=== PATIENT | female | born 1975 | race Two or more races ===

== ENCOUNTER 2018-09-06 00:31 | Inpatient (IN) | payer OTHER ==
[2018-09-06] MEDS ORDERED: Famotidine 20 MG/2 ML SDV IVPUSH ONE (00:58)
[2018-09-06] MEDS ORDERED: Ondansetron 4 MG/2 ML SDV IVPUSH ONE (00:58)
[2018-09-06] MEDS ORDERED: Sodium Chloride 0.9% 10 ML Syringe FLUSH PRN (00:58)
[2018-09-06] MEDS ORDERED: HYDROmorphone 1 MG/ML Syringe IVPUSH ONE ×2 (00:58→06:18)
[2018-09-06] MEDS ORDERED: Sodium Chloride 0.9% 1,000 ML IV SCH ×2 (01:00→08:30)
--- NOTE | 2018-09-06 01:03 | EDM.PDOC ---
ED HPI GENERAL MEDICAL PROBLEM - General Chief Complaint: Abdominal Pain Stated Complaint: GALLSTONES Time Seen by Provider: 09/06/18 00:51 Source of Information: Reports: Patient, RN Notes Reviewed - History of Present Illness INITIAL COMMENTS - FREE TEXT/NARRATIVE: 42-year-old female comes in with right upper quadrant abdominal pain. This started 2 days ago and has been very steady, very uncomfortable for at least the last 2 days. The pain does radiate to her back. She does eat she has more severe pain, more severe vomiting. She has vomited at least 3 times this past afternoon and evening. Her last food was of bowel 10 hours ago. She has not had prior gallbladder or any other abdominal surgery. She did have similar discomfort about 3 years ago. Right Upper Abdomen Pain Score (Numeric/FACES): 10 - Related Data Allergies Allergy/AdvReac Type Severity Reaction Status Date / Time bacitracin Allergy Hives Verified 09/06/18 01:23 [From Neosporin ([id number])] neomycin Allergy Hives Verified 09/06/18 01:23 [From Neosporin ([id number])] polymyxin B Allergy Hives Verified 09/06/18 01:23 [From Neosporin ([id number])] Home Meds: Home Meds . 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: - Past Surgical History Female Surgical History: Reports: Section Social & Family History - Tobacco Use Smoking Status *Q: Never Smoker - Recreational Drug Use Recreational Drug Use: No ED ROS GENERAL - Review of Systems Review Of Systems: See Below Constitutional: Denies: Fever, Chills HEENT: Denies: Throat Pain Respiratory: Denies: Shortness of Breath Cardiovascular: Denies: Chest Pain GI/Abdominal: Reports: Abdominal Pain, Nausea, Vomiting Musculoskeletal: Reports: Back Pain Skin: Reports: No Symptoms ED EXAM, GI/ABD - Physical Exam Exam: See Below General Appearance: Alert, Moderate Distress Eyes: Bilateral: Normal Appearance Throat/Mouth: Normal Inspection, Normal Oropharynx Head: Atraumatic Neck: Supple, Full Range of Motion Respiratory/Chest: No Respiratory Distress, Lungs Clear, Normal Breath Sounds Cardiovascular: Regular Rate, Rhythm GI/Abdominal Exam: Tender (Tender right upper quadrant, remainder of abdomen soft and nontender). No: Rebound Back Exam: No: CVA Tenderness (L), CVA Tenderness (R) Extremities: Normal Inspection Neurological: Alert, No Motor/Sensory Deficits Skin Exam: Warm, Dry, Normal Color Course - Vital Signs Last Recorded V/S: Last Vital Signs Temp 97.8 F 09/06/18 00:40 Pulse 70 09/06/18 00:40 Resp 20 09/06/18 00:40 BP 131/80 09/06/18 00:40 Pulse Ox 100 09/06/18 00:40 - Orders/Labs/Meds Orders: Active Orders 24 hr Category Date Time Status Peripheral IV Care [RC] . DIRECTED Care 09/06/18 00:59 Active Abdomen Ltd [US] Stat Exams 09/06/18 05:34 Taken Sodium Chloride 0.9% [Normal Saline] 1,000 ml Med 09/06/18 01:00 Active IV ONETIME Sodium Chloride 0.9% [Saline Flush] Med 09/06/18 00:58 Active 10 ml FLUSH ASDIRECTED PRN Peripheral IV Insertion Adult [OM.PC] Stat Oth 09/06/18 00:58 Ordered Medication Orders Sodium Chloride (Normal Saline) 1,000 mls @ 999 mls/hr IV ONETIME [facility] Last Admin: 09/06/18 01:12 Dose: 999 mls/hr Sodium Chloride (Saline Flush) 10 ml FLUSH ASDIRECTED PRN PRN Reason: Keep Vein Open Last Admin: 09/06/18 01:15 Dose: 10 ml Labs: Laboratory Tests 09/06/18 09/06/18 09/06/18 Range/Units 01:05 01:05 01:05 WBC 15.48 H (3.98-10.04) K/mm3 RBC 4.76 (3.98-5.22) M/mm3 Hgb 13.7 (11.2-15.7) gm/L Hct 40.5 (34.1-44.9) % MCV 85.1 (79.4-94.8) fl MCH 28.8 (25.6-32.2) pg MCHC 33.8 (32.2-35.5) g/dl RDW Std Deviation 40.0 (36.4-46.3) fL Plt Count 268 (182-369) K/mm3 MPV 9.5 (9.4-12.3) fl Neutrophils % (Manual) 83 H (40-60) % Band Neutrophils % 0 (0-10) % Lymphocytes % (Manual) 12 L (20-40) % Atypical Lymphs % 0 % Monocytes % (Manual) 5 (2-10) % Eosinophils % (Manual) 0 L (0.7-5.8) % Basophils % (Manual) 0 L (0.1-1.2) Platelet Estimate Adequate RBC Morph Comment Normal Sodium 137 (136-145) mEq/L Potassium 3.7 (3.5-5.1) mEq/L Chloride 101 (98-107) mEq/L Carbon Dioxide 25 (21-32) mEq/L Anion Gap 14.7 (5-15) BUN 11 (7-18) mg/dL Creatinine 0.8 (0.55-1.02) mg/dL Est Cr Clr Drug Dosing TNP Estimated GFR (MDRD) > 60 (>60) mL/min BUN/Creatinine Ratio 13.8 L (14-18) Glucose 113 H (74-106) mg/dL Calcium 9.7 (8.5-10.1) mg/dL Total Bilirubin 1.0 (0.2-1.0) mg/dL GGT 58 H (5-55) U/L AST 21 (15-37) U/L ALT 34 (14-59) U/L Alkaline Phosphatase 112 (46-116) U/L C-Reactive Protein 11.6 H* (<1.0) mg/dL Total Protein 8.4 H (6.4-8.2) g/dl Albumin 3.7 (3.4-5.0) g/dl Globulin 4.7 gm/dL Albumin/Globulin Ratio 0.8 L (1-2) Lipase 130 (73-393) U/L Meds: Medications Generic Name Dose Route Start Last Admin Trade Name Freq PRN Reason Stop Dose Admin Sodium Chloride 1,000 mls @ 999 mls/hr 09/06/18 01:00 09/06/18 01:12 Normal Saline IV 999 mls/hr ONETIME MARLENA Administration Sodium Chloride 10 ml 09/06/18 00:58 09/06/18 01:15 Saline Flush FLUSH 10 ml ASDIRECTED PRN Administration Keep Vein Open Discontinued Medications Generic Name Dose Route Start Last Admin Trade Name Freq PRN Reason Stop Dose Admin Famotidine 20 mg 09/06/18 00:58 09/06/18 01:13 Pepcid IVPUSH 09/06/18 00:59 20 mg ONETIME ONE Administration Hydromorphone HCl 1 mg 09/06/18 00:58 09/06/18 01:14 Dilaudid IVPUSH 09/06/18 00:59 1 mg ONETIME ONE Administration Hydromorphone HCl 1 mg 09/06/18 06:18 09/06/18 06:29 Dilaudid IVPUSH 09/06/18 06:19 1 mg ONETIME ONE Administration Piperacillin Sod/Tazobactam 100 mls @ 25 mls/hr 09/06/18 02:25 09/06/18 02:45 Sod 4.5 gm/ Sodium Chloride IV 09/06/18 06:24 25 mls/hr ONETIME ONE Administration Ondansetron HCl 4 mg 09/06/18 00:58 09/06/18 01:12 Zofran IVPUSH 09/06/18 00:59 4 mg ONETIME ONE Administration - Re-Assessments/Exams Free Text/Narrative Re-Assessment/Exam: 09/06/18 02:30. White blood count, C-reactive protein elevated GGT T very slightly elevated, other workers for gallbladder disease okay including bilirubin and alkaline phosphatase. Based on her severe pain and tenderness on presentation right upper abdomen with radiation to her back she does have gallbladder disease until proven otherwise. We will get an ultrasound at 7:30 this morning based on that determine disposition. Ordered Zosyn 4.5 g IV. Given Dilaudid Zosyn and Pepcid IV and she is sleeping, appears to be resting quite comfortably at this time. Departure - Departure Time of Disposition: 07:06 Disposition: Refer to Observation Condition: Fair Clinical Impression: Cholecystitis - Discharge Information Referrals: PCP,Not In Area [Primary Care Provider] - Forms: ED Department Discharge ED Communication - Discussed Case With (1) Discussed Case With (1): Admitting Provider (Discussed with Dr Griffin, decision to admit at about 07:00.) - My Orders Last 24 Hours: My Active Orders 09/06/18 00:58 Sodium Chloride 0.9% [Saline Flush] 10 ml FLUSH ASDIRECTED PRN Peripheral IV Insertion Adult [OM.PC] Stat 09/06/18 00:59 Peripheral IV Care [RC] . DIRECTED 09/06/18 01:00 Sodium Chloride 0.9% [Normal Saline] 1,000 ml IV ONETIME 09/06/18 05:34 Abdomen Ltd [US] Stat - Assessment/Plan Last 24 Hours: My Active Orders 09/06/18 00:58 Sodium Chloride 0.9% [Saline Flush] 10 ml FLUSH ASDIRECTED PRN Peripheral IV Insertion Adult [OM.PC] Stat 09/06/18 00:59 Peripheral IV Care [RC] . DIRECTED 09/06/18 01:00 Sodium Chloride 0.9% [Normal Saline] 1,000 ml IV ONETIME 09/06/18 05:34 Abdomen Ltd [US] Stat
[2018-09-06] MEDS: Piperacillin/Tazobactam 4.5 GM in Sodium Chloride 0.9% 100 ML IV ONE ×2 (02:45→11:00)
--- NOTE | 2018-09-06 07:22 | US ---
Limited abdominal ultrasound: Multiple real-time images of the upper right abdomen were obtained. Comparison: No prior abdominal imaging. Liver shows no discrete abnormality. Single gallstone is seen within the gallbladder measuring 1.3 cm. Small amount of sludge is also seen within the gallbladder. Common bile duct slightly dilated up to 9 mm. No discrete intraluminal abnormality is appreciated within the CBD. Right kidney shows no hydronephrosis or mass and has a length of 11.5 cm. Pancreas is incompletely seen. Visualized pancreas is within normal limits. Portal vein shows normal hepatopedal flow. Impression: 1. Single gallstone with no gallbladder wall thickening. Common bile duct mildly prominent measuring up to 9 mm. Small amount of sludge is noted within the gallbladder. 2. No additional abnormality is identified on right upper quadrant abdominal ultrasound. Diagnostic code #3
[2018-09-06] MEDS ORDERED: Ondansetron 4 MG/2 ML SDV IVPUSH PRN ×2 (08:28→13:46)
[2018-09-06] MEDS ORDERED: HYDROmorphone 1 MG/ML Syringe IVPUSH PRN ×2 (08:28→13:59)
[2018-09-06] MEDS ORDERED: Piperacillin/Tazobactam 4.5 GM in Sodium Chloride 0.9% 100 ML IV SCH ×2 (08:30→11:00)
--- NOTE | 2018-09-06 10:46 | PCM.HP ---
H&P History of Present Illness - General Date of Service: 09/06/18 Admit Problem/Dx: Admission Diagnosis/Problem Admission Diagnosis/Problem Cholecystitis Source of Information: Patient, Provider History Limitations: Reports: No Limitations - History of Present Illness Initial Comments - Free Text/Narative: 42-year-old lady presented with three-day history of right upper quadrant abdominal pain. She reports having associated chills. He denies any nausea or vomiting. She denies any fever. She had a similar episode 3 years ago. She was seen and evaluated in the emergency department. Laboratory testing revealed an elevated white blood cell count of over 15,000, she also had a right upper quadrant ultrasound that revealed gallstone and sludge without evidence of gallbladder wall thickening. The common bile duct was somewhat blunt enlarged without evidence of obstruction. She has a normal mobile total bilirubin level of 1. 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 Denies: Fever HEENT: Reports: No Symptoms Pulmonary: Reports: No Symptoms Cardiovascular: Reports: No Symptoms Gastrointestinal: Reports: Abdominal Pain Musculoskeletal: Reports: Back Pain Skin: Reports: No Symptoms Exam - Exam Exam: See Below - Vital Signs Vital Signs: Last Vital Signs Temp 36.6 C 09/06/18 08:05 Pulse 82 03/18/19 08:05 Resp 16 09/06/18 08:05 BP 113/57 L 09/06/18 08:05 Pulse Ox 100 09/06/18 08:05 Weight: 87.543 kg - Exam Quality Assessment: No: Supplemental Oxygen General: Alert, Oriented HEENT: Conjunctiva Clear, EOMI Neck: Supple Lungs: Clear to Auscultation, Normal Respiratory Effort Cardiovascular: Regular Rate, Regular Rhythm GI/Abdominal Exam: Soft, Tender (in RUQ and epigastrium) Extremities: Normal Inspection Peripheral Pulses: 2+: Dorsalis Pedis (L), Dorsalis Pedis (R) Skin: Warm, Dry, Intact Neurological: Cranial Nerves Intact Neuro Extensive - Mental Status: Alert, Normal Mood/Affect - Patient Data Lab Results Last 24 hrs: Laboratory Results - last 24 hr 09/06/18 09/06/18 09/06/18 Range/Units 01:05 01:05 01:05 WBC 15.48 H (3.98-10.04) K/mm3 RBC 4.76 (3.98-5.22) M/mm3 Hgb 13.7 (11.2-15.7) gm/L Hct 40.5 (34.1-44.9) % MCV 85.1 (79.4-94.8) fl MCH 28.8 (25.6-32.2) pg MCHC 33.8 (32.2-35.5) g/dl RDW Std Deviation 40.0 (36.4-46.3) fL Plt Count 268 (182-369) K/mm3 MPV 9.5 (9.4-12.3) fl Neutrophils % (Manual) 83 H (40-60) % Band Neutrophils % 0 (0-10) % Lymphocytes % (Manual) 12 L (20-40) % Atypical Lymphs % 0 % Monocytes % (Manual) 5 (2-10) % Eosinophils % (Manual) 0 L (0.7-5.8) % Basophils % (Manual) 0 L (0.1-1.2) Platelet Estimate Adequate RBC Morph Comment Normal Sodium 137 (136-145) mEq/L Potassium 3.7 (3.5-5.1) mEq/L Chloride 101 (98-107) mEq/L Carbon Dioxide 25 (21-32) mEq/L Anion Gap 14.7 (5-15) BUN 11 (7-18) mg/dL Creatinine 0.8 (0.55-1.02) mg/dL Est Cr Clr Drug Dosing TNP Estimated GFR (MDRD) > 60 (>60) mL/min BUN/Creatinine Ratio 13.8 L (14-18) Glucose 113 H (74-106) mg/dL Calcium 9.7 (8.5-10.1) mg/dL Total Bilirubin 1.0 (0.2-1.0) mg/dL GGT 58 H (5-55) U/L AST 21 (15-37) U/L ALT 34 (14-59) U/L Alkaline Phosphatase 112 (46-116) U/L C-Reactive Protein 11.6 H* (<1.0) mg/dL Total Protein 8.4 H (6.4-8.2) g/dl Albumin 3.7 (3.4-5.0) g/dl Globulin 4.7 gm/dL Albumin/Globulin Ratio 0.8 L (1-2) Lipase 130 (73-393) U/L Result Diagrams: 09/06/18 01:05 09/06/18 01:05 *Q Meaningful Use (ADM) - VTE Risk Assess *Q Each Risk Factor Represents 1 Point: Age 41 - 59 years, Minor Surgery Planned, Obesity ( BMI > 25 kg/m2) Total Score 1 Point Risk Factors: 3 - Problem List (1) Acute cholecystitis SNOMED Code(s): 19097558 ICD Code: K81.0 - ACUTE CHOLECYSTITIS Status: Acute Current Visit: Yes Problem List Initiated/Reviewed/Updated: Yes Orders Last 24hrs: Active Orders 24 hr Category Date Time Status Patient Status [ADT] Routine ADT 09/06/18 07:20 Active Activity as Tolerated [RC] .Routine Care 09/06/18 08:34 Active Peripheral IV Care [RC] . DIRECTED Care 09/06/18 00:59 Active Nothing per Oral Now Diet [DIET] Diet 09/06/18 Lunch Active HYDROmorphone [Dilaudid] Med 09/06/18 08:28 Active 0.5 mg IVPUSH Q2H PRN Lactated Ringers [Ringers, Lactated] 1,000 ml Med 09/06/18 09:45 Active IV ASDIRECTED Ondansetron [Zofran] Med 09/06/18 08:28 Active 4 mg IVPUSH Q8H PRN Piperacillin/Tazobactam [Piperacil-Tazobact] 4.5 gm Med 09/06/18 11:00 Active Sodium Chloride 0.9% [Normal Saline] 100 ml IV Q8H Sodium Chloride 0.9% [Saline Flush] Med 09/06/18 00:58 Active 10 ml FLUSH ASDIRECTED PRN Peripheral IV Insertion Adult [OM.PC] Stat Oth 09/06/18 00:58 Ordered Resuscitation Status Routine Resus Stat 09/06/18 08:28 Ordered Medication Orders Hydromorphone HCl (Dilaudid) 0.5 mg IVPUSH Q2H PRN PRN Reason: severe pain Last Admin: 09/06/18 09:33 Dose: 0.5 mg Piperacillin Sod/Tazobactam (Sod 4.5 gm/ Sodium Chloride) 100 mls @ 25 mls/hr IV Q8H MARLENA Lactated Ringer's (Ringers, Lactated) 1,000 mls @ 125 mls/hr IV ASDIRECTED [facility]NA Ondansetron HCl (Zofran) 4 mg IVPUSH Q8H PRN PRN Reason: Nausea/vomitting Sodium Chloride (Saline Flush) 10 ml FLUSH ASDIRECTED PRN PRN Reason: Keep Vein Open Last Admin: 09/06/18 01:15 Dose: 10 ml Assessment/Plan Comment:: 42-year-old lady with acute cholecystitis - Plan for laparoscopic cholecystectomy, possible conversion to open. Discussed risks of possible bleeding, possible bile duct injury and possible injury to surrounding bowel. We discussed that the amount of inflammation may be too great to remove the gallbladder at this time, but we will know more definitively with intraoperative findings. - NPO with IVF - continue current pain regimen - Will assess the need for further inpatient stay based on intraoperative findings Silvia Cardenas MD General surgery
[2018-09-06] MEDS ORDERED: Ondansetron 4 MG/2 ML SDV ONE ×2 (10:48→11:15)
[2018-09-06] MEDS ORDERED: fentaNYL 250 MCG/5 ML SDV ONE ×2 (10:48→11:16)
[2018-09-06] MEDS ORDERED: Lidocaine 1% PF 2 ML SDV ONE ×2 (10:48→11:16)
[2018-09-06] MEDS ORDERED: Propofol 200 MG/20 ML SDV ONE ×2 (10:48→11:16)
[2018-09-06] MEDS ORDERED: Rocuronium 50 MG/5 ML Vial ONE ×2 (10:48→11:15)
[2018-09-06] MEDS ORDERED: Midazolam 1 MG/ML 2 ML SDV ONE ×2 (10:48→11:16)
[2018-09-06] MEDS: Lactated Ringers 1,000 ML IV SCH ×2 (11:04→17:25)
[2018-09-06] MEDS ORDERED: Bupivacaine 0.5%/EPINEPHrine 1:200,000 50 ML MDV ONE (11:16)
[2018-09-06] MEDS ORDERED: Lidocaine 1% with EPINEPHrine 1:100,000 20 ML MDV ONE (11:16)
[2018-09-06] MEDS ORDERED: ceFAZolin 1 GM Vial ONE (12:01)
[2018-09-06] MEDS ORDERED: HYDROmorphone 0.5 MG/0.5 ML Syringe ONE ×2 (12:18→12:26)
[2018-09-06] MEDS ORDERED: fentaNYL 100 MCG/2 ML SDV ONE (12:50)
[2018-09-06] MEDS ORDERED: Dexamethasone 4 MG/ML 5 ML MDV ONE (12:51)
[2018-09-06] MEDS ORDERED: Neostigmine Methylsulfate 1 MG/ML 5 ML Syringe ONE (13:20)
[2018-09-06] MEDS ORDERED: Lactated Ringers 1,000 ML ONE (13:38)
[2018-09-06] MEDS ORDERED: Ketorolac 30 MG/ML SDV ONE (13:45)
[2018-09-06] MEDS ORDERED: fentaNYL 100 MCG/2 ML SDV IVPUSH PRN (13:46)
[2018-09-06] MEDS ORDERED: HYDROmorphone 0.5 MG/0.5 ML Syringe IVPUSH PRN (13:46)
--- NOTE | 2018-09-06 13:58 | PCM.OPNOTE ---
- General Post-Op/Procedure Note Date of Surgery/Procedure: 09/06/18 Operative Procedure(s): laparoscopic cholecystectomy Findings: inflamed gallbladder with hydrops and purulent fluid Pre Op Diagnosis: acute cholecystitis Post-Op Diagnosis: same Anesthesia Technique: General ET Tube Primary Surgeon: Silvia Cardenas Anesthesia Provider: Kaitlin Sandy Pathology: gallbladder Fluid Replacement, Intraop: 1,700 Output, Urine Amount: 0 EBL in mLs: 30 Complications: none apparent Condition: Good Free Text/Narrative:: purulent spillage from gallbladder
--- NOTE | 2018-09-06 14:05 | PCM.PRNOTE ---
- Free Text/Narrative Note: OPERATIVE REPORT Date of Surgery/Procedure: September 06, 2018 Operative Procedure(s): laparoscopic cholecystectomy Findings: inflamed gallbladder with hydrops and purulent fluid Pre Op Diagnosis: Acute cholecystitis Post-Op Diagnosis: Same Anesthesia Technique: General ET Tube Primary Surgeon: Silvia Cardenas MD Anesthesia Provider: Kaitlin Sandy CRNA and Aron Escobar CRNA Pathology: Gallbladder with stone(s) Fluid Replacement, Intraop: 1700cc Output, Urine Amount: 0cc EBL: 30cc Drain/Tube Comments: None Indication for the procedure: The patient is a 42-year-old lady who presented to the emergency department with 3 days of right upper quadrant pain. She was diagnosed with acute cholecystitis based on physical exam, laboratory and imaging findings. The patient was counseled for laparoscopic cholecystectomy, with possible conversion to open. After discussion of the risks of bleeding and injury to the bile duct as well as injury to bowel, the patient's consent was obtained. Description of the procedure: The patient presented to the outpatient holding area on the day of the procedure. The history and physical were verified and consent was present and on the chart. The patient was taken back to the operating room and placed in supine position on the operating table. SCD boots were placed and functional prior to the start of the procedure. Preoperative antibiotics were administered according to SCIP protocol, Ancef 2 g IV. A surgical timeout was performed. The patient then had induction of general anesthesia and was intubated without difficulty. The patient was prepped and draped in standard surgical fashion. We began by making an infraumbilical vertical incision and deepened this down through subcutaneous fat to the level of the fascia. This was grasped and incised. We bluntly entered through the peritoneum and a finger sweep was done. A stay suture of 0 Vicryl was placed in the fascia. The 12 mm balloon Christopher port was then inserted into the abdomen and the balloon inflated. Insufflation was attached and we had appropriate opening pressures. The abdomen was then insufflated to 15 mmHg. We inserted a scope into the abdomen and inspected the area where we had entered. There was no evidence of injury to surrounding structures with no evidence of bile or bleeding. A TAP block was then performed using 1% lidocaine with epinephrine mixed with 0.5% bupivicaine with epinephrine. The patient was then positioned with head up and right side up to facilitate exposure of the gallbladder. We then proceeded with placing our additional ports. A 5mm port was placed in the epigastric region. Two additional 5mm ports placed under direct visualization in the right upper quadrant. Once we had sufficiently exposed the dome of the gallbladder. The gallbladder was firm and immobile when palpated intraoperatively. A laparoscopic needle was inserted into the gallbladder and 25 mL of clear fluid was aspirated from the gallbladder. The gallbladder was grasped and retracted cephalad. We noted immediately that the duodenum had been incorporated onto the gallbladder with fibrinous adhesions. There was edema and thickening of the tissues, which made identification of the ductal structures difficult. We proceeded with our dissection to expose the cystic duct and cystic artery. The cystic duct and artery were then clipped and cut using endoscopic scissors. We then proceeded to fully dissect the gallbladder off of the cystic plate using the Bovie device. During dissection, there was spillage of clear fluid and purulent fluid from the gallbladder. The gallbladder was in place in the Endo Catch bag and withdrawn towards the umbilical port. We then inspected the area of the dissection. This was irrigated and suctioned. Ray-Maame's were placed into the abdomen to help blotted up some of this fluid, they were then pulled out. Surgicel was placed into the abdomen and held against the cystic plate to assist with hemostasis. The Bovie device was also used to cauterize bleeding points on the cystic plate. After this was completed, there was no significant bleeding and hemostasis was achieved. The Surgicel was removed. We then inspected the port sites and desufflated the abdomen. The ports were then removed. The gallbladder was withdrawn through the umbilical port site. We had to open the Endo Catch bag to grasp the gallbladder to assist with extracting it from the abdominal cavity, however, the gallbladder did not leave the Endo Catch bag. We then proceeded to close the umbilical port site using an 0 Vicryl stitch. We had good closure of the fascia. The umbilical port site was then irrigated with normal saline due to the purulent fluid of the gallbladder. The umbilical port site was then closed with yareli and covered with a dry dressing. A superficial 4-0 monocryl suture was used to approximate the skin on the additional port sites. The skin was covered with Dermabond surgical glue on these additional port sites. The patient tolerated the procedure well and was extubated without difficulty. She was transported to the PACU in stable condition. All sponge, needle counts correct. No immediate complications noted. Complications: None apparent Condition: Good Silvia Cardenas MD General Surgery
--- NOTE | 2018-09-06 14:16 | PCM.POSTAN ---
POST ANESTHESIA ASSESSMENT - MENTAL STATUS Mental Status: Somnolent - VITAL SIGNS Pulse Rate: 10 SaO2: 95 Resp Rate: 10 Blood Pressure: 104/59 Temperature: 99.4 C - RESPIRATORY Respiratory Status: Respiratory Rate WNL, Airway Patent, O2 Saturation Stable, Supplemental Oxygen - CARDIOVASCULAR CV Status: Pulse Rate WNL, Blood Pressure Stable - GASTROINTESTINAL GI Status: No Symptoms - PAIN Pain Score: 0 - POST OP HYDRATION Hydration Status: Adequate & Stable - OBSERVATIONS Free Text/Narrative:: no anesthesia complications noted
[2018-09-06] MEDS: cefOXitin 2 GM in Premix Bag 1 BAG IV SCH ×2 (16:12→20:21)
[2018-09-06] MEDS ORDERED: Ibuprofen 600 MG Tab PO PRN (20:00)
[2018-09-06] MEDS: Acetaminophen/HYDROcodone 325-5 MG Tab PO PRN (20:20)
[2018-09-07] MEDS: cefOXitin 2 GM in Premix Bag 1 BAG IV SCH ×2 (04:04→08:08)
[2018-09-07] MEDS: Acetaminophen/HYDROcodone 325-5 MG Tab PO PRN (04:05)
--- NOTE | 2018-09-07 07:33 | PCM.SURGPN ---
- General Info Date of Service: 09/07/18 POD#: 1 Functional Status: Reports: Pain Controlled, Ambulating, Urinating - Patient Data Vitals - Most Recent: Last Vital Signs Temp 37.1 C 09/07/18 04:13 Pulse 80 09/07/18 04:13 Resp 18 09/07/18 04:13 BP 111/89 09/07/18 04:13 Pulse Ox 92 L 09/07/18 04:13 Weight - Most Recent: 89.018 kg I&O - Last 24 Hours: Intake & Output 09/06/18 09/07/18 09/07/18 22:59 06:59 14:59 Intake Total 300 1900 Balance 300 1900 Med Orders - Current: Current Medications Hydrocodone Bitart/Acetaminophen ([place] 325-5 Mg) 1 - 2 tab PO Q4H PRN PRN Reason: Pain (severe 7-10) Last Admin: 09/07/18 04:05 Dose: 2 tab Hydromorphone HCl (Dilaudid) 0.5 mg IVPUSH Q3H PRN PRN Reason: Breakthrough Pain Cefoxitin Sodium 2 gm/ Premix 50 mls @ 100 mls/hr IV Q6H [facility] Stop: 09/07/18 09:29 Last Admin: 09/07/18 04:04 Dose: 100 mls/hr Ibuprofen (Motrin) 600 mg PO Q6H PRN PRN Reason: Pain (moderate 4-6) Ondansetron HCl (Zofran) 4 mg IVPUSH Q8H PRN PRN Reason: Nausea/vomitting Sodium Chloride (Saline Flush) 10 ml FLUSH ASDIRECTED PRN PRN Reason: Keep Vein Open Last Admin: 09/06/18 01:15 Dose: 10 ml Discontinued Medications Bupivacaine HCl/Epinephrine Bitart ([place] 0.5%/Epinephrine 1:200,000) Confirm Administered Dose 50 ml .ROUTE .STK-MED ONE Stop: 09/06/18 11:17 Last Admin: 09/06/18 12:08 Dose: 30 ml Cefazolin Sodium (Ancef) Confirm Administered Dose 2 gm .ROUTE .STK-MED ONE Stop: 09/06/18 12:02 Dexamethasone (Dexamethasone) Confirm Administered Dose 20 mg .ROUTE .STK-MED ONE Stop: 09/06/18 12:52 Famotidine (Pepcid) 20 mg IVPUSH ONETIME ONE Stop: 09/06/18 00:59 Last Admin: 09/06/18 01:13 Dose: 20 mg Fentanyl (Sublimaze) Confirm Administered Dose 250 mcg .ROUTE .STK-MED ONE Stop: 09/06/18 10:49 Fentanyl (Sublimaze) Confirm Administered Dose 250 mcg .ROUTE .STK-MED ONE Stop: 09/06/18 11:17 Fentanyl (Sublimaze) Confirm Administered Dose 100 mcg .ROUTE .STK-MED ONE Stop: 09/06/18 12:51 Fentanyl (Sublimaze) 50 mcg IVPUSH Q5M PRN PRN Reason: Pain Stop: 09/06/18 16:00 Glycopyrrolate () Confirm Administered Dose 1 mg .ROUTE .STK-MED ONE Stop: 09/06/18 13:21 Hydromorphone HCl (Dilaudid) 1 mg IVPUSH ONETIME ONE Stop: 09/06/18 00:59 Last Admin: 09/06/18 01:14 Dose: 1 mg Hydromorphone HCl (Dilaudid) 1 mg IVPUSH ONETIME ONE Stop: 09/06/18 06:19 Last Admin: 09/06/18 06:29 Dose: 1 mg Hydromorphone HCl (Dilaudid) 0.5 mg IVPUSH Q2H PRN PRN Reason: severe pain Last Admin: 09/06/18 09:33 Dose: 0.5 mg Hydromorphone HCl (Dilaudid) Confirm Administered Dose 0.5 mg .ROUTE .STK-MED ONE Stop: 09/06/18 12:19 Hydromorphone HCl (Dilaudid) Confirm Administered Dose 0.5 mg .ROUTE .STK-MED ONE Stop: 09/06/18 12:27 Hydromorphone HCl (Dilaudid) 0.5 mg IVPUSH Q10M PRN PRN Reason: Pain (severe 7-10) Stop: 09/06/18 16:00 Sodium Chloride (Normal Saline) 1,000 mls @ 999 mls/hr IV ONETIME [facility] Last Admin: 09/06/18 01:12 Dose: 999 mls/hr Piperacillin Sod/Tazobactam (Sod 4.5 gm/ Sodium Chloride) 100 mls @ 25 mls/hr IV ONETIME ONE Stop: 09/06/18 06:24 Last Infusion: 09/06/18 06:45 Dose: Infused Piperacillin Sod/Tazobactam (Sod 4.5 gm/ Sodium Chloride) 100 mls @ 25 mls/hr IV Q8H [facility] Last Admin: 09/06/18 11:22 Dose: Not Given Sodium Chloride (Normal Saline) 1,000 mls @ 125 mls/hr IV ASDIRECTED [facility] Piperacillin Sod/Tazobactam (Sod 4.5 gm/ Sodium Chloride) 100 mls @ 25 mls/hr IV Q8H [facility] Last Admin: 09/06/18 11:20 Dose: Not Given Lactated Ringer's (Ringers, Lactated) 1,000 mls @ 125 mls/hr IV ASDIRECTED [facility] Last Admin: 09/06/18 17:25 Dose: 125 mls/hr Lactated Ringer's (Ringers, Lactated) Confirm Administered Dose 1,000 mls @ as directed .ROUTE .STK-MED ONE Stop: 09/06/18 13:39 Cefoxitin Sodium (Mefoxin In Dextrose,Iso-Osm 2 Gm/50 Ml) Confirm Administered Dose 50 mls @ as directed .ROUTE .STK-MED ONE Stop: 09/06/18 16:06 Last Admin: 09/06/18 16:11 Dose: Not Given Cefoxitin Sodium (Mefoxin In Dextrose,Iso-Osm 2 Gm/50 Ml) Confirm Administered Dose 50 mls @ as directed .ROUTE .STK-MED ONE Stop: 09/06/18 16:09 Last Admin: 09/06/18 16:12 Dose: Not Given Ketorolac Tromethamine (Toradol) Confirm Administered Dose 30 mg .ROUTE .STK- MED ONE Stop: 09/06/18 13:46 Lidocaine HCl (Xylocaine-Mpf 1%) Confirm Administered Dose 4 ml .ROUTE .STK-MED ONE Stop: 09/06/18 10:49 Lidocaine HCl (Xylocaine-Mpf 1%) Confirm Administered Dose 4 ml .ROUTE .STK-MED ONE Stop: 09/06/18 11:17 Lidocaine/Epinephrine (Xylocaine 1% With Epinephrine 1:100,000) Confirm Administered Dose 40 ml .ROUTE .STK-MED ONE Stop: 09/06/18 11:17 Last Admin: 09/06/18 12:08 Dose: 30 ml Midazolam HCl (Versed 1 Mg/Ml) Confirm Administered Dose 2 mg .ROUTE .STK-MED ONE Stop: 09/06/18 10:49 Midazolam HCl (Versed 1 Mg/Ml) Confirm Administered Dose 2 mg .ROUTE .STK-MED ONE Stop: 09/06/18 11:17 Neostigmine Methylsulfate (Neostigmine) Confirm Administered Dose 5 mg .ROUTE .STK-MED ONE Stop: 09/06/18 13:21 Ondansetron HCl (Zofran) 4 mg IVPUSH ONETIME ONE Stop: 09/06/18 00:59 Last Admin: 09/06/18 01:12 Dose: 4 mg Ondansetron HCl (Zofran) Confirm Administered Dose 4 mg .ROUTE .STK-MED ONE Stop: 09/06/18 10:49 Ondansetron HCl (Zofran) Confirm Administered Dose 4 mg .ROUTE .STK-MED ONE Stop: 09/06/18 11:16 Ondansetron HCl (Zofran) 4 mg IVPUSH ONETIME PRN PRN Reason: Nausea/Vomiting Stop: 09/06/18 16:00 Propofol (Diprivan 20 Ml) Confirm Administered Dose 200 mg .ROUTE .STK-MED ONE Stop: 09/06/18 10:49 Propofol (Diprivan 20 Ml) Confirm Administered Dose 200 mg .ROUTE .STK-MED ONE Stop: 09/06/18 11:17 Rocuronium [place] (Zemuron) Confirm Administered Dose 50 mg .ROUTE .STK-MED ONE Stop: 09/06/18 10:49 Rocuronium [place] (Zemuron) Confirm Administered Dose 50 mg .ROUTE .STK-MED ONE Stop: 09/06/18 11:16 - Exam Wound/Incisions: Healing Well, Dressing Dry and Intact. No: Erythema General: Alert, Oriented Lungs: Normal Respiratory Effort GI/Abdominal Exam: Soft, Non-Tender, No Distention - Problem List & Annotations (1) Acute cholecystitis SNOMED Code(s): 09280443 Code(s): K81.0 - ACUTE CHOLECYSTITIS Status: Acute Current Visit: Yes - Problem List Review Problem List Initiated/Reviewed/Updated: Yes - My Orders Last 24 Hours: Active Orders 24 hr Category Date Time Status Patient Status [ADT] Routine ADT 09/07/18 07:27 Ordered Activity as Tolerated [RC] DAILY Care 09/06/18 08:34 Active Antiembolic Devices [RC] PER UNIT ROUTINE Care 09/06/18 18:43 Active Cooling Warming Measures [RC] ASDIRECTED Care 09/06/18 13:46 Active Oxygen Therapy [RC] ASDIRECTED Care 09/06/18 13:46 Active Pulse Oximetry [RC] ASDIRECTED Care 09/06/18 13:46 Active Vital Signs [RC] Q4HR Care 09/06/18 13:46 Active Regular Diet [DIET] Diet 09/06/18 Lunch Active Acetaminophen/HYDROcodone [[place] 325-5 MG] Med 09/06/18 13:59 Active 1 - 2 tab PO Q4H PRN HYDROmorphone [Dilaudid] Med 09/06/18 13:59 Active 0.5 mg IVPUSH Q3H PRN Ibuprofen [Motrin] Med 09/06/18 20:00 Active 600 mg PO Q6H PRN Ondansetron [Zofran] Med 09/06/18 08:28 Active 4 mg IVPUSH Q8H PRN cefOXitin [Mefoxin in Dextrose,Iso-Osm 2 GM/50 ML] 2 gm Med 09/06/18 15:00 Active Premix Bag 1 bag IV Q6H Schedule Procedure [COMM] Routine Oth 09/06/18 11:00 Ordered Sequential Compression Device [OM.PC] Routine Oth 09/06/18 18:42 Ordered Resuscitation Status Routine Resus Stat 09/06/18 08:28 Ordered Medication Orders Hydrocodone Bitart/Acetaminophen ([place] 325-5 Mg) 1 - 2 tab PO Q4H PRN PRN Reason: Pain (severe 7-10) Last Admin: 09/07/18 04:05 Dose: 2 tab Admin: 09/06/18 20:20 Dose: 2 tab Hydromorphone HCl (Dilaudid) 0.5 mg IVPUSH Q3H PRN PRN Reason: Breakthrough Pain Cefoxitin Sodium 2 gm/ Premix 50 mls @ 100 mls/hr IV Q6H [facility] Stop: 09/07/18 09:29 Last Admin: 09/07/18 04:04 Dose: 100 mls/hr Infusion: 09/06/18 20:51 Dose: 100 mls/hr Admin: 09/06/18 20:21 Dose: 100 mls/hr Infusion: 09/06/18 16:42 Dose: 100 mls/hr Admin: 09/06/18 16:12 Dose: 100 mls/hr Ibuprofen (Motrin) 600 mg PO Q6H PRN PRN Reason: Pain (moderate 4-6) Ondansetron HCl (Zofran) 4 mg IVPUSH Q8H PRN PRN Reason: Nausea/vomitting Sodium Chloride (Saline Flush) 10 ml FLUSH ASDIRECTED PRN PRN Reason: Keep Vein Open Last Admin: 09/06/18 01:15 Dose: 10 ml - Assessment Assessment (Free Text/Narrative):: 42 y/o lady POD1 s/p lap cholecystectomy - Plan Plan (Free Text/Narrative):: - continue regular diet - one more dose ABX for full 24hr therapy - ambulate - incentive spirometry - discharge home Silvia Cardenas MD General Surgery
--- NOTE | 2018-09-07 07:38 | PCM.DCSUM1 ---
Discharge Summary - Hospital Course Free Text/Narrative:: Pt was admitted with acute cholecystitis. She had a successful laparoscopic cholecystectomy and an uneventful postoperative course. She was discharged home on postoperative day 1. Diagnosis: Stroke: No Modified [place] Scale: No Signif.Disability Despite Sympt.Able to Carry Out Usual Act./Duties Modified [place] Scale Score: 1 - Discharge Data Discharge Date: 09/07/18 Discharge Disposition: Home, Self-Care 01 Condition: Good - Discharge Diagnosis/Problem(s) (1) Acute cholecystitis SNOMED Code(s): 18714385 ICD Code: K81.0 - ACUTE CHOLECYSTITIS Status: Acute Current Visit: Yes - Patient Summary/Data Operative Procedure(s) Performed: laparoscopic cholecystectomy - Patient Instructions Diet: Usual Diet as Tolerated Activity: Apply Ice, No Lifting Over 20 Pounds (for 2 weeks), No Strenuous Activities (for 2 weeks) Showering/Bathing: No Tub Bathing/Swimming (for 2 weeks), May Shower in 3 Days ( on Thursday09/08/18) Wound/Incision Care: Keep Operative Site/Wound Site Clean and Dry (You may remove the bandage on your abdomen on Thursday09/08/18, then leave open) Notify Provider of: Fever, Increased Pain, Swelling and Redness, Drainage, Nausea and/or Vomiting Other/Special Instructions: Do not take the Ordegan (ketorolac) and ibuprofen at the same time. - Discharge Plan *PRESCRIPTION DRUG MONITORING PROGRAM REVIEWED*: Not Applicable *COPY OF PRESCRIPTION DRUG MONITORING REPORT IN PATIENT OTILIA: Not Applicable Prescriptions/Med Rec: Acetaminophen/HYDROcodone [[place] 325-5 MG] 1 - 2 tab PO Q4H PRN 14 Days #40 tablet PRN Reason: Pain (Severe 7-10) Docusate Sodium [Colace] 100 mg PO BID 20 Days #40 cap Ibuprofen [Motrin] 600 mg PO Q6H PRN 20 Days #120 tablet PRN Reason: Pain (Moderate 4-6) Home Medications: Home Meds Acetaminophen/HYDROcodone [[place] 325-5 MG] 1 - 2 tab PO Q4H PRN 14 Days #40 tablet 09/06/18 [Rx] Docusate Sodium [Colace] 100 mg PO BID 20 Days #40 cap 09/06/18 [Rx] Ibuprofen [Motrin] 600 mg PO Q6H PRN 20 Days #120 tablet 09/06/18 [Rx] Ordegan 1 tab PO BID 09/06/18 [History] Patient Handouts: Laparoscopic Cholecystectomy Forms: ED Department Discharge Referrals: PCP,Not In Area [Primary Care Provider] - [employer] [Nurse Practitioner] - (follow up in 2 weeks) - Discharge Summary/Plan Comment DC Time >30 min.: No - Patient Data Vitals - Most Recent: Last Vital Signs Temp 37.1 C 09/07/18 04:13 Pulse 80 09/07/18 04:13 Resp 18 09/07/18 04:13 BP 111/89 09/07/18 04:13 Pulse Ox 92 L 09/07/18 04:13 Weight - Most Recent: 89.018 kg I&O - Last 24 hours: Intake & Output 09/06/18 09/07/18 09/07/18 22:59 06:59 14:59 Intake Total 300 1900 Balance 300 1900 Med Orders - Current: Current Medications Hydrocodone Bitart/Acetaminophen ([place] 325-5 Mg) 1 - 2 tab PO Q4H PRN PRN Reason: Pain (severe 7-10) Last Admin: 09/07/18 04:05 Dose: 2 tab Hydromorphone HCl (Dilaudid) 0.5 mg IVPUSH Q3H PRN PRN Reason: Breakthrough Pain Cefoxitin Sodium 2 gm/ Premix 50 mls @ 100 mls/hr IV Q6H [facility] Stop: 09/07/18 09:29 Last Admin: 09/07/18 04:04 Dose: 100 mls/hr Ibuprofen (Motrin) 600 mg PO Q6H PRN PRN Reason: Pain (moderate 4-6) Ondansetron HCl (Zofran) 4 mg IVPUSH Q8H PRN PRN Reason: Nausea/vomitting Sodium Chloride (Saline Flush) 10 ml FLUSH ASDIRECTED PRN PRN Reason: Keep Vein Open Last Admin: 09/06/18 01:15 Dose: 10 ml Discontinued Medications Bupivacaine HCl/Epinephrine Bitart ([place] 0.5%/Epinephrine 1:200,000) Confirm Administered Dose 50 ml .ROUTE .STK-MED ONE Stop: 09/06/18 11:17 Last Admin: 09/06/18 12:08 Dose: 30 ml Cefazolin Sodium (Ancef) Confirm Administered Dose 2 gm .ROUTE .STK-MED ONE Stop: 09/06/18 12:02 Dexamethasone (Dexamethasone) Confirm Administered Dose 20 mg .ROUTE .STK-MED ONE Stop: 09/06/18 12:52 Famotidine (Pepcid) 20 mg IVPUSH ONETIME ONE Stop: 09/06/18 00:59 Last Admin: 09/06/18 01:13 Dose: 20 mg Fentanyl (Sublimaze) Confirm Administered Dose 250 mcg .ROUTE .STK-MED ONE Stop: 09/06/18 10:49 Fentanyl (Sublimaze) Confirm Administered Dose 250 mcg .ROUTE .STK-MED ONE Stop: 09/06/18 11:17 Fentanyl (Sublimaze) Confirm Administered Dose 100 mcg .ROUTE .STK-MED ONE Stop: 09/06/18 12:51 Fentanyl (Sublimaze) 50 mcg IVPUSH Q5M PRN PRN Reason: Pain Stop: 09/06/18 16:00 Glycopyrrolate () Confirm Administered Dose 1 mg .ROUTE .STK-MED ONE Stop: 09/06/18 13:21 Hydromorphone HCl (Dilaudid) 1 mg IVPUSH ONETIME ONE Stop: 09/06/18 00:59 Last Admin: 09/06/18 01:14 Dose: 1 mg Hydromorphone HCl (Dilaudid) 1 mg IVPUSH ONETIME ONE Stop: 09/06/18 06:19 Last Admin: 09/06/18 06:29 Dose: 1 mg Hydromorphone HCl (Dilaudid) 0.5 mg IVPUSH Q2H PRN PRN Reason: severe pain Last Admin: 09/06/18 09:33 Dose: 0.5 mg Hydromorphone HCl (Dilaudid) Confirm Administered Dose 0.5 mg .ROUTE .STK-MED ONE Stop: 09/06/18 12:19 Hydromorphone HCl (Dilaudid) Confirm Administered Dose 0.5 mg .ROUTE .STK-MED ONE Stop: 09/06/18 12:27 Hydromorphone HCl (Dilaudid) 0.5 mg IVPUSH Q10M PRN PRN Reason: Pain (severe 7-10) Stop: 09/06/18 16:00 Sodium Chloride (Normal Saline) 1,000 mls @ 999 mls/hr IV ONETIME [facility] Last Admin: 09/06/18 01:12 Dose: 999 mls/hr Piperacillin Sod/Tazobactam (Sod 4.5 gm/ Sodium Chloride) 100 mls @ 25 mls/hr IV ONETIME ONE Stop: 09/06/18 06:24 Last Infusion: 09/06/18 06:45 Dose: Infused Piperacillin Sod/Tazobactam (Sod 4.5 gm/ Sodium Chloride) 100 mls @ 25 mls/hr IV Q8H [facility] Last Admin: 09/06/18 11:22 Dose: Not Given Sodium Chloride (Normal Saline) 1,000 mls @ 125 mls/hr IV ASDIRECTED [facility] Piperacillin Sod/Tazobactam (Sod 4.5 gm/ Sodium Chloride) 100 mls @ 25 mls/hr IV Q8H [facility] Last Admin: 09/06/18 11:20 Dose: Not Given Lactated Ringer's (Ringers, Lactated) 1,000 mls @ 125 mls/hr IV ASDIRECTED [facility] Last Admin: 09/06/18 17:25 Dose: 125 mls/hr Lactated Ringer's (Ringers, Lactated) Confirm Administered Dose 1,000 mls @ as directed .ROUTE .STK-MED ONE Stop: 09/06/18 13:39 Cefoxitin Sodium (Mefoxin In Dextrose,Iso-Osm 2 Gm/50 Ml) Confirm Administered Dose 50 mls @ as directed .ROUTE .STK-MED ONE Stop: 09/06/18 16:06 Last Admin: 09/06/18 16:11 Dose: Not Given Cefoxitin Sodium (Mefoxin In Dextrose,Iso-Osm 2 Gm/50 Ml) Confirm Administered Dose 50 mls @ as directed .ROUTE .STK-MED ONE Stop: 09/06/18 16:09 Last Admin: 09/06/18 16:12 Dose: Not Given Ketorolac Tromethamine (Toradol) Confirm Administered Dose 30 mg .ROUTE .STK- MED ONE Stop: 09/06/18 13:46 Lidocaine HCl (Xylocaine-Mpf 1%) Confirm Administered Dose 4 ml .ROUTE .STK-MED ONE Stop: 09/06/18 10:49 Lidocaine HCl (Xylocaine-Mpf 1%) Confirm Administered Dose 4 ml .ROUTE .STK-MED ONE Stop: 09/06/18 11:17 Lidocaine/Epinephrine (Xylocaine 1% With Epinephrine 1:100,000) Confirm Administered Dose 40 ml .ROUTE .STK-MED ONE Stop: 09/06/18 11:17 Last Admin: 09/06/18 12:08 Dose: 30 ml Midazolam HCl (Versed 1 Mg/Ml) Confirm Administered Dose 2 mg .ROUTE .STK-MED ONE Stop: 09/06/18 10:49 Midazolam HCl (Versed 1 Mg/Ml) Confirm Administered Dose 2 mg .ROUTE .STK-MED ONE Stop: 09/06/18 11:17 Neostigmine Methylsulfate (Neostigmine) Confirm Administered Dose 5 mg .ROUTE .STK-MED ONE Stop: 09/06/18 13:21 Ondansetron HCl (Zofran) 4 mg IVPUSH ONETIME ONE Stop: 09/06/18 00:59 Last Admin: 09/06/18 01:12 Dose: 4 mg Ondansetron HCl (Zofran) Confirm Administered Dose 4 mg .ROUTE .STK-MED ONE Stop: 09/06/18 10:49 Ondansetron HCl (Zofran) Confirm Administered Dose 4 mg .ROUTE .STK-MED ONE Stop: 09/06/18 11:16 Ondansetron HCl (Zofran) 4 mg IVPUSH ONETIME PRN PRN Reason: Nausea/Vomiting Stop: 09/06/18 16:00 Propofol (Diprivan 20 Ml) Confirm Administered Dose 200 mg .ROUTE .STK-MED ONE Stop: 09/06/18 10:49 Propofol (Diprivan 20 Ml) Confirm Administered Dose 200 mg .ROUTE .STK-MED ONE Stop: 09/06/18 11:17 Rocuronium [place] (Zemuron) Confirm Administered Dose 50 mg .ROUTE .STK-MED ONE Stop: 09/06/18 10:49 Rocuronium [place] (Zemuron) Confirm Administered Dose 50 mg .ROUTE .STK-MED ONE Stop: 09/06/18 11:16
--- NOTE | 2018-09-07 07:44 | PCM48HPAN ---
Post Anesthesia Note - EVALUATION WITHIN 48HRS OF ANESTHETIC Vital Signs in Normal Range: Yes Patient Participated in Evaluation: Yes Respiratory Function Stable: Yes Airway Patent: Yes Cardiovascular Function Stable: Yes Hydration Status Stable: Yes Pain Control Satisfactory: Yes Nausea and Vomiting Control Satisfactory: Yes Mental Status Recovered: Yes (no complaints- sitting up in bed) Pulse Rate: 80 Resp Rate: 18 Temperature: 98.8 F Blood Pressure: 111/89
--- NOTE | 2018-09-08 11:33 | PCM.PREANE ---
Preanesthetic Assessment - Anesthesia/Transfusion/Family Hx Anesthesia History: Prior Anesthesia Without Reaction Family History of Anesthesia Reaction: No Transfusion History: Unknown - Review of Systems General: Weakness, Fatigue, Malaise Pulmonary: No Symptoms Cardiovascular: Dyspnea on Exertion Gastrointestinal: Abdominal Pain Neurological: No Symptoms Other: Reports: None - Physical Assessment Pulse: 80 O2 Sat by Pulse Oximetry: 92 Respiratory Rate: 16 Blood Pressure: 111/89 Temperature: 37.1 C Vital Signs: Last Vital Signs Temp 36.4 C 09/07/18 08:00 Pulse 80 09/07/18 07:44 Resp 16 09/07/18 08:00 BP 103/56 L 09/07/18 08:00 Pulse Ox 92 L 09/07/18 08:00 Height: 1.52 m Weight: 89.018 kg ASA Class: 2E Mental Status: Alert & Oriented x3 Airway Class: Mallampati = 1 Dentition: Reports: Normal Dentition Thyro-Mental Finger Breadths: 3 Mouth Opening Finger Breadths: 3 ROM/Head Extension: Full Lungs: Clear to Auscultation, Normal Respiratory Effort Cardiovascular: Regular Rate, Regular Rhythm - Lab Values: Laboratory Last Values WBC 15.48 K/mm3 (3.98-10.04) H 09/06/18 01:05 RBC 4.76 M/mm3 (3.98-5.22) 09/06/18 01:05 Hgb 13.7 gm/L (11.2-15.7) 09/06/18 01:05 Hct 40.5 % (34.1-44.9) 09/06/18 01:05 MCV 85.1 fl (79.4-94.8) 09/06/18 01:05 MCH 28.8 pg (25.6-32.2) 09/06/18 01:05 MCHC 33.8 g/dl (32.2-35.5) 09/06/18 01:05 RDW Std Deviation 40.0 fL (36.4-46.3) 09/06/18 01:05 Plt Count 268 K/mm3 (182-369) 09/06/18 01:05 MPV 9.5 fl (9.4-12.3) 09/06/18 01:05 Neutrophils % (Manual) 83 % (40-60) H 09/06/18 01:05 Band Neutrophils % 0 % (0-10) 09/06/18 01:05 Lymphocytes % (Manual) 12 % (20-40) L 09/06/18 01:05 Atypical Lymphs % 0 % 09/06/18 01:05 Monocytes % (Manual) 5 % (2-10) 09/06/18 01:05 Eosinophils % (Manual) 0 % (0.7-5.8) L 09/06/18 01:05 Basophils % (Manual) 0 (0.1-1.2) L 09/06/18 01:05 Platelet Estimate Adequate 09/06/18 01:05 RBC Morph Comment Normal 09/06/18 01:05 Sodium 137 mEq/L (136-145) 09/06/18 01:05 Potassium 3.7 mEq/L (3.5-5.1) 09/06/18 01:05 Chloride 101 mEq/L (98-107) 09/06/18 01:05 Carbon Dioxide 25 mEq/L (21-32) 09/06/18 01:05 Anion Gap 14.7 (5-15) 09/06/18 01:05 BUN 11 mg/dL (7-18) 09/06/18 01:05 Creatinine 0.8 mg/dL (0.55-1.02) 09/06/18 01:05 Est Cr Clr Drug Dosing TNP 09/06/18 01:05 Estimated GFR (MDRD) > 60 mL/min (>60) 09/06/18 01:05 BUN/Creatinine Ratio 13.8 (14-18) L 09/06/18 01:05 Glucose 113 mg/dL (74-106) H 09/06/18 01:05 Calcium 9.7 mg/dL (8.5-10.1) 09/06/18 01:05 Total Bilirubin 1.0 mg/dL (0.2-1.0) 09/06/18 01:05 GGT 58 U/L (5-55) H 09/06/18 01:05 AST 21 U/L (15-37) 09/06/18 01:05 ALT 34 U/L (14-59) 09/06/18 01:05 Alkaline Phosphatase 112 U/L (46-116) 09/06/18 01:05 C-Reactive Protein 11.6 mg/dL (<1.0) H* 09/06/18 01:05 Total Protein 8.4 g/dl (6.4-8.2) H 09/06/18 01:05 Albumin 3.7 g/dl (3.4-5.0) 09/06/18 01:05 Globulin 4.7 gm/dL 09/06/18 01:05 Albumin/Globulin Ratio 0.8 (1-2) L 09/06/18 01:05 Lipase 130 U/L (73-393) 09/06/18 01:05 - Allergies Allergies/Adverse Reactions: Allergies Allergy/AdvReac Type Severity Reaction Status Date / Time bacitracin Allergy Hives Verified 09/06/18 01:23 [From Neosporin ([id number])] neomycin Allergy Hives Verified 09/06/18 01:23 [From Neosporin ([id number])] polymyxin B Allergy Hives Verified 09/06/18 01:23 [From Neosporin ([id number])] - Blood Blood Available: No Product(s) Available: None - Acknowledgements Anesthesia Type Planned: General Anesthesia Pt an Appropriate Candidate for the Planned Anesthesia: Yes Alternatives and Risks of Anesthesia Discussed w Pt/Guardian: Yes Pt/Guardian Understands and Agrees with Anesthesia Plan: Yes PreAnesthesia Questionnaire - Past Health History Medical/Surgical History: Denies Medical/Surgical History Gastrointestinal History: Reports: Cholelithiasis [employer] History: Reports: Other Oncologic History: Endometrial - Past Surgical History Female Surgical History: Reports: Section - SUBSTANCE USE Smoking Status *Q: Never Smoker Second Hand Smoke Exposure: No Recreational Drug Use History: No - HOME MEDS Home Medications: Home Meds Acetaminophen/HYDROcodone [[place] 325-5 MG] 1 - 2 tab PO Q4H PRN 14 Days #40 tablet 09/06/18 [Rx] Docusate Sodium [Colace] 100 mg PO BID 20 Days #40 cap 09/06/18 [Rx] Ibuprofen [Motrin] 600 mg PO Q6H PRN 20 Days #120 tablet 09/06/18 [Rx] Ordegan 1 tab PO BID 09/06/18 [History] - CURRENT (IN HOUSE) MEDS Current Meds: Current Medications Discontinued Medications Hydrocodone Bitart/Acetaminophen ([place] 325-5 Mg) 1 - 2 tab PO Q4H PRN PRN Reason: Pain (severe 7-10) Last Admin: 09/07/18 04:05 Dose: 2 tab Bupivacaine HCl/Epinephrine Bitart (Marcaine 0.5%/Epinephrine 1:200,000) Confirm Administered Dose 50 ml .ROUTE .STK-MED ONE Stop: 09/06/18 11:17 Last Admin: 09/06/18 12:08 Dose: 30 ml Cefazolin Sodium (Ancef) Confirm Administered Dose 2 gm .ROUTE .STK-MED ONE Stop: 09/06/18 12:02 Dexamethasone (Dexamethasone) Confirm Administered Dose 20 mg .ROUTE .STK-MED ONE Stop: 09/06/18 12:52 Famotidine (Pepcid) 20 mg IVPUSH ONETIME ONE Stop: 09/06/18 00:59 Last Admin: 09/06/18 01:13 Dose: 20 mg Fentanyl (Sublimaze) Confirm Administered Dose 250 mcg .ROUTE .STK-MED ONE Stop: 09/06/18 10:49 Fentanyl (Sublimaze) Confirm Administered Dose 250 mcg .ROUTE .STK-MED ONE Stop: 09/06/18 11:17 Fentanyl (Sublimaze) Confirm Administered Dose 100 mcg .ROUTE .STK-MED ONE Stop: 09/06/18 12:51 Fentanyl (Sublimaze) 50 mcg IVPUSH Q5M PRN PRN Reason: Pain Stop: 09/06/18 16:00 Glycopyrrolate () Confirm Administered Dose 1 mg .ROUTE .STK-MED ONE Stop: 09/06/18 13:21 Hydromorphone HCl (Dilaudid) 1 mg IVPUSH ONETIME ONE Stop: 09/06/18 00:59 Last Admin: 09/06/18 01:14 Dose: 1 mg Hydromorphone HCl (Dilaudid) 1 mg IVPUSH ONETIME ONE Stop: 09/06/18 06:19 Last Admin: 09/06/18 06:29 Dose: 1 mg Hydromorphone HCl (Dilaudid) 0.5 mg IVPUSH Q2H PRN PRN Reason: severe pain Last Admin: 09/06/18 09:33 Dose: 0.5 mg Hydromorphone HCl (Dilaudid) Confirm Administered Dose 0.5 mg .ROUTE .STK-MED ONE Stop: 09/06/18 12:19 Hydromorphone HCl (Dilaudid) Confirm Administered Dose 0.5 mg .ROUTE .STK-MED ONE Stop: 09/06/18 12:27 Hydromorphone HCl (Dilaudid) 0.5 mg IVPUSH Q10M PRN PRN Reason: Pain (severe 7-10) Stop: 09/06/18 16:00 Hydromorphone HCl (Dilaudid) 0.5 mg IVPUSH Q3H PRN PRN Reason: Breakthrough Pain Sodium Chloride (Normal Saline) 1,000 mls @ 999 mls/hr IV ONETIME [facility] Last Admin: 09/06/18 01:12 Dose: 999 mls/hr Piperacillin Sod/Tazobactam (Sod 4.5 gm/ Sodium Chloride) 100 mls @ 25 mls/hr IV ONETIME ONE Stop: 09/06/18 06:24 Last Infusion: 09/06/18 06:45 Dose: Infused Piperacillin Sod/Tazobactam (Sod 4.5 gm/ Sodium Chloride) 100 mls @ 25 mls/hr IV Q8H [facility] Last Admin: 09/06/18 11:22 Dose: Not Given Sodium Chloride (Normal Saline) 1,000 mls @ 125 mls/hr IV ASDIRECTED [facility] Piperacillin Sod/Tazobactam (Sod 4.5 gm/ Sodium Chloride) 100 mls @ 25 mls/hr IV Q8H [facility] Last Admin: 09/06/18 11:20 Dose: Not Given Lactated Ringer's (Ringers, Lactated) 1,000 mls @ 125 mls/hr IV ASDIRECTED [facility] Last Admin: 09/06/18 17:25 Dose: 125 mls/hr Lactated Ringer's (Ringers, Lactated) Confirm Administered Dose 1,000 mls @ as directed .ROUTE .STK-MED ONE Stop: 09/06/18 13:39 Cefoxitin Sodium 2 gm/ Premix 50 mls @ 100 mls/hr IV Q6H [facility] Stop: 09/07/18 09:29 Last Admin: 09/07/18 08:08 Dose: 100 mls/hr Cefoxitin Sodium (Mefoxin In Dextrose,Iso-Osm 2 Gm/50 Ml) Confirm Administered Dose 50 mls @ as directed .ROUTE .STK-MED ONE Stop: 09/06/18 16:06 Last Admin: 09/06/18 16:11 Dose: Not Given Cefoxitin Sodium (Mefoxin In Dextrose,Iso-Osm 2 Gm/50 Ml) Confirm Administered Dose 50 mls @ as directed .ROUTE .STK-MED ONE Stop: 09/06/18 16:09 Last Admin: 09/06/18 16:12 Dose: Not Given Ibuprofen (Motrin) 600 mg PO Q6H PRN PRN Reason: Pain (moderate 4-6) Last Admin: 09/07/18 10:08 Dose: 600 mg Ketorolac Tromethamine (Toradol) Confirm Administered Dose 30 mg .ROUTE .STK- MED ONE Stop: 09/06/18 13:46 Lidocaine HCl (Xylocaine-Mpf 1%) Confirm Administered Dose 4 ml .ROUTE .STK-MED ONE Stop: 09/06/18 10:49 Lidocaine HCl (Xylocaine-Mpf 1%) Confirm Administered Dose 4 ml .ROUTE .STK-MED ONE Stop: 09/06/18 11:17 Lidocaine/Epinephrine (Xylocaine 1% With Epinephrine 1:100,000) Confirm Administered Dose 40 ml .ROUTE .STK-MED ONE Stop: 09/06/18 11:17 Last Admin: 09/06/18 12:08 Dose: 30 ml Midazolam HCl (Versed 1 Mg/Ml) Confirm Administered Dose 2 mg .ROUTE .STK-MED ONE Stop: 09/06/18 10:49 Midazolam HCl (Versed 1 Mg/Ml) Confirm Administered Dose 2 mg .ROUTE .STK-MED ONE Stop: 09/06/18 11:17 Neostigmine Methylsulfate (Neostigmine) Confirm Administered Dose 5 mg .ROUTE .STK-MED ONE Stop: 09/06/18 13:21 Ondansetron HCl (Zofran) 4 mg IVPUSH ONETIME ONE Stop: 09/06/18 00:59 Last Admin: 09/06/18 01:12 Dose: 4 mg Ondansetron HCl (Zofran) 4 mg IVPUSH Q8H PRN PRN Reason: Nausea/vomitting Ondansetron HCl (Zofran) Confirm Administered Dose 4 mg .ROUTE .STK-MED ONE Stop: 09/06/18 10:49 Ondansetron HCl (Zofran) Confirm Administered Dose 4 mg .ROUTE .STK-MED ONE Stop: 09/06/18 11:16 Ondansetron HCl (Zofran) 4 mg IVPUSH ONETIME PRN PRN Reason: Nausea/Vomiting Stop: 09/06/18 16:00 Propofol (Diprivan 20 Ml) Confirm Administered Dose 200 mg .ROUTE .STK-MED ONE Stop: 09/06/18 10:49 Propofol (Diprivan 20 Ml) Confirm Administered Dose 200 mg .ROUTE .STK-MED ONE Stop: 09/06/18 11:17 Rocuronium [place] (Zemuron) Confirm Administered Dose 50 mg .ROUTE .STK-MED ONE Stop: 09/06/18 10:49 Rocuronium [place] (Zemuron) Confirm Administered Dose 50 mg .ROUTE .STK-MED ONE Stop: 09/06/18 11:16 Sodium Chloride (Saline Flush) 10 ml FLUSH ASDIRECTED PRN PRN Reason: Keep Vein Open Last Admin: 09/06/18 01:15 Dose: 10 ml
== END 2018-09-07 11:50 | disposition home or self-care (01) | DRG 418 ==
LOC: JD.ED 00:31 → JD.MS 07:20 → OBSVTOIN 09-07 07:43 → JD.MS 09-07 07:44
PROVIDERS: ADMIT Surgery; ATTEND Surgery
PROC: 0FT44ZZ Resection of Gallbladder, Percutaneous Endoscopic Approach (ICD-10-PCS; principal; 2018-09-06)
DX: K80.00 Calculus of gallbladder with acute cholecystitis without obstruction (principal); K82.1 Hydrops of gallbladder; Z88.8 Allergy status to other drugs, medicaments and biological substances; Z79.899 Other long term (current) drug therapy; Z90.710 Acquired absence of both cervix and uterus
CPT/HCPCS: 00790; 36415; 76705; 76705-26; 80053; 82977; 83690; 85007; 85027; 86140; 96361; 96365; 96366; 96375; 96376; 99284; 99285-25; A9270-GY; G0378; J0690; J0694; J1100; J1170; J1885; J2001; J2250; J2405; J2543; J2704; J2710; J3010; J3490; J7030; J7040; J7120